=== PATIENT | male | born 1980 | race Caucasian/White ===

== ENCOUNTER 2016-04-23 16:07 | Inpatient (IN) | payer MEDICAID, OTHER ==
[~2016-04-23] VITALS: Ht 182.9 cm; Wt 89.6 kg
[2016-04-23] MEDS ORDERED: [UNRECOGNIZED DRUG - REMARK] PO (16:26)
[2016-04-23 17:16] LABS: BASOPHILS % (AUTO) 0.8 % (0.0-2.0); EOSINOPHILS % (AUTO) 5.7 % (1.0-6.0); HEMATOCRIT 40.5 % (41-53); HEMOGLOBIN 13.3 g/dL (13.5-17.5); LYMPHOCYTES # (AUTO) 2.5 K/uL (1.0-4.8); LYMPHOCYTES % (AUTO) 31.3 % (22.0-44.0); MEAN CORPUSCULAR HEMOGLOBIN 27.7 pg (26.0-34.0); MEAN CORPUSCULAR HGB CONC 32.9 G/dL (31.0-37.0); MEAN CORPUSCULAR VOLUME 84 fL (80-100); MONOCYTES # (AUTO) 0.6 K/uL (0.1-1.0); MONOCYTES % (AUTO) 8.1 % (2.0-9.0); NEUTROPHILS # (AUTO) 4.3 K/uL (1.8-7.7); NEUTROPHILS % (AUTO) 54.1 % (40.0-70.0); PLATELET COUNT (AUTO) 209 K/uL (150-450); RED BLOOD CELL COUNT(AUTO) 4.81 MIL/uL (4.50-5.90); RED CELL DISTRIBUTION WIDTH 12.5 % (11.5-14.5); WHITE BLOOD COUNT (AUTO) 7.9 K/uL (4.5-11.0)
[2016-04-23 17:23] LABS: ANION GAP 9 mmol/L (8-16); CALCIUM, TOTAL 8.3 mg/dL (8.8-10.5); CARBON DIOXIDE 27 mmol/L (22-29); CHLORIDE 105 mmol/L (98-107); CREATININE 1.03 mg/dL (0.60-1.30); GLOMERULAR FILTR. RATE CALC > 60 mL/min (>60); POTASSIUM 4.5 mmol/L (3.5-5.1); SODIUM SERUM 141 mmol/L (136-145); UREA NITROGEN, BLOOD 10 mg/dL (7-18)
[2016-04-23 17:30] LABS: ALANINE AMINOTRANSFERASE 26 U/L (12-78); ALBUMIN 3.5 g/dL (3.4-5.0); ASPARTATE AMINOTRANSFERASE 8 U/L (15-37); BILIRUBIN,TOTAL 0.2 mg/dL (0.1-1.0)
[2016-04-23 17:36] LABS: RBC MORPHOLOGY COMMENT NORMAL RBC MORPH
[2016-04-23] MEDS ORDERED: SILVER SULFADIAZINE 1% 25 GM CREAM TP ONE (18:30)
[2016-04-23] MEDS ORDERED: ZOLPIDEM TARTRATE 10 MG TABLET PO PRN (20:30)
[2016-04-23] MEDS ORDERED: HALOPERIDOL 5 MG TABLET PO PRN (20:30)
[2016-04-23] MEDS ORDERED: MAG HYDROX/AL HYDROX/SIMETH ES 30 ML SUSPENSION UDCUP PO PRN (20:30)
[2016-04-23] MEDS ORDERED: LORazepam 2 MG TABLET PO PRN (20:30)
[2016-04-23] MEDS ORDERED: MAGNESIUM HYDROXIDE SUSPENSION 30 ML UDCUP PO PRN (20:30)
[2016-04-23] MEDS ORDERED: ACETAMINOPHEN 325 MG TABLET PO PRN (20:30)
[2016-04-23 20:55] VITALS: BP 146/63
[2016-04-23] MEDS ORDERED: INFLUENZA VIRUS VACCINE QVS 2016-17 (3YR+)/PF 60 MCG/0.5 ML SYRINGE IM ONE (21:15)
[2016-04-24 08:00] VITALS: BP 130/77
[2016-04-24] MEDS: BENZTROPINE MESYLATE 0.5 MG TABLET PO SCH ×2 (09:05→17:08)
[2016-04-24] MEDS: HALOPERIDOL 5 MG TABLET PO SCH ×2 (09:05→17:08)
[2016-04-24] MEDS: NICOTINE 14 MG/24 HOUR PATCH TD SCH (09:09)
[2016-04-24] MEDS: SILVER SULFADIAZINE 1% 25 GM CREAM TP SCH ×2 (10:54→17:08)
[2016-04-24 17:15] VITALS: BP 112/67
[2016-04-25 06:57] LABS: HEMOGLOBIN A1C 5.7 % (4.5-6.2)
[2016-04-25 07:22] LABS: CHOL/HDL RATIO 4.9 (4.2-7.3); CREATINE KINASE, TOTAL 82 U/L (39-308); THYROID STIMULATING HORMONE 0.74 uIU/mL (0.36-3.74)
[2016-04-25 07:28] LABS: CREATINE KINASE MB < 0.5 ng/mL (0-5)
[2016-04-25 08:00] VITALS: BP 113/64
[2016-04-25] MEDS ORDERED: HALO5 PO (08:42)
[2016-04-25] MEDS ORDERED: BENZ0.5T6 PO (08:42)
[2016-04-25] MEDS: NICOTINE 14 MG/24 HOUR PATCH TD SCH (09:00)
[2016-04-25] MEDS: BENZTROPINE MESYLATE 0.5 MG TABLET PO SCH (09:09)
[2016-04-25] MEDS: HALOPERIDOL 5 MG TABLET PO SCH (09:09)
[2016-04-25] MEDS: SILVER SULFADIAZINE 1% 25 GM CREAM TP SCH (09:13)
== END 2016-04-25 11:32 | disposition home or self-care (01) | DRG 751 ==
LOC: EMS 16:10 → 3EI 20:17
PROVIDERS: ADMIT Psychiatry & Neurology Psychiatry; ATTEND Psychiatry & Neurology Psychiatry
DX: F29 Unspecified psychosis not due to a substance or known physiological condition (principal); F15.20 Other stimulant dependence, uncomplicated; D64.9 Anemia, unspecified; F12.90 Cannabis use, unspecified, uncomplicated; F32.9 Major depressive disorder, single episode, unspecified; R73.03 Prediabetes; F17.210 Nicotine dependence, cigarettes, uncomplicated; F41.9 Anxiety disorder, unspecified; T26.32XA Burns of other specified parts of left eye and adnexa, initial encounter; Z59.0 Homelessness; Z79.899 Other long term (current) drug therapy; Z87.81 Personal history of (healed) traumatic fracture; X76.XXXA Intentional self-harm by smoke, fire and flames, initial encounter; Z28.21 Immunization not carried out because of patient refusal; Y93.89 Activity, other specified; Y92.89 Other specified places as the place of occurrence of the external cause; Y99.8 Other external cause status; Z82.49 Family history of ischemic heart disease and other diseases of the circulatory system
CPT/HCPCS: 82306; 82607; 82746; 83036; 83735; 84439; 84443; 86592; 99285; G0480

== ENCOUNTER 2016-09-25 12:58 | Emergency (ER) | payer MEDICAID, OTHER ==
[~2016-09-25] VITALS: Ht 180.3 cm; Wt 85.0 kg
[~2016-09-25 12:58] MED LIST: BENZ0.5T6 PO; HALO5 PO
[2016-09-25 13:59] LABS: BASOPHILS % (AUTO) 0.5 % (0.0-2.0); EOSINOPHILS % (AUTO) 2.8 % (1.0-6.0); HEMOGLOBIN 14.1 g/dL (13.5-17.5); LYMPHOCYTES # (AUTO) 1.9 K/uL (1.0-4.8); LYMPHOCYTES % (AUTO) 26.2 % (22.0-44.0); MEAN CORPUSCULAR HEMOGLOBIN 28.4 pg (26.0-34.0); MEAN CORPUSCULAR HGB CONC 33.6 G/dL (31.0-37.0); MEAN CORPUSCULAR VOLUME 85 fL (80-100); MONOCYTES # (AUTO) 0.4 K/uL (0.1-1.0); MONOCYTES % (AUTO) 5.2 % (2.0-9.0); NEUTROPHILS # (AUTO) 4.7 K/uL (1.8-7.7); NEUTROPHILS % (AUTO) 65.3 % (40.0-70.0); PLATELET COUNT (AUTO) 197 K/uL (150-450); RED BLOOD CELL COUNT(AUTO) 4.96 MIL/uL (4.50-5.90); RED CELL DISTRIBUTION WIDTH 12.9 % (11.5-14.5); WHITE BLOOD COUNT (AUTO) 7.2 K/uL (4.5-11.0)
[2016-09-25 14:17] LABS: ANION GAP 11 mmol/L (8-16); CARBON DIOXIDE 24 mmol/L (22-29); CHLORIDE 104 mmol/L (98-107); CREATININE 1.14 mg/dL (0.60-1.30); GLOMERULAR FILTR. RATE CALC > 60 mL/min (>60); POTASSIUM 3.8 mmol/L (3.5-5.1); SODIUM SERUM 139 mmol/L (136-145); UREA NITROGEN, BLOOD 19 mg/dL (7-18)
[2016-09-25 14:25] LABS: ALANINE AMINOTRANSFERASE 26 U/L (12-78); ASPARTATE AMINOTRANSFERASE 14 U/L (15-37); BILIRUBIN,TOTAL 0.6 mg/dL (0.1-1.0); TOTAL PROTEIN, SERUM 7.4 g/dL (6.4-8.2)
[2016-09-25] MEDS ORDERED: HALOPERIDOL 5 MG TABLET PO ONE (17:00)
[2016-09-25] MEDS ORDERED: BENZTROPINE MESYLATE 0.5 MG TABLET PO ONE (17:00)
[2016-09-25 17:10] VITALS: BP 123/69
== END 2016-09-25 17:26 | disposition home or self-care (01) ==
LOC: EMS 12:59
DX: F41.9 Anxiety disorder, unspecified (principal); F32.9 Major depressive disorder, single episode, unspecified; F25.9 Schizoaffective disorder, unspecified; F17.210 Nicotine dependence, cigarettes, uncomplicated; F12.90 Cannabis use, unspecified, uncomplicated
CPT/HCPCS: 36415; 80053; 85025; 99284; 99406; G0480